=== PATIENT | male | born 1975 | race Caucasian/White ===

== ENCOUNTER 2024-06-10 12:41 | Emergency (ER) | payer OTHER ==
[~2024-06-10] VITALS: Wt 72.6 kg
[~2024-06-10 12:41] MED LIST: AMITRIPTYLINE; BACTRIM DS 8001 TA1 PO; FLEXERIL5 MG PO; HYDROCODONE BIT1 T11 PO; KEFLEX500 MG PO; MOTRIN800 MG PO; ZANTAC150 MG PO
== END 2024-06-10 12:50 | disposition home or self-care (01) ==
LOC: ED 12:41
DX: F32.A Depression, unspecified (principal); Z98.890 Other specified postprocedural states